=== PATIENT | female | born 1980 | race Caucasian/White ===

== ENCOUNTER → 2020-11-17 07:27 | Outpatient (CLI) | payer OTHER, SELFPAY ==
[2020-11-17] MEDS: COVID-19 VACC, Ad26(JANSSEN)/PF 0.5 ML IM (07:37)
== END ==
PROVIDERS: Family Provider Psychiatry & Neurology Neurology; PCP Psychiatry & Neurology Neurology; Visit Provider Internal Medicine
DX: Z23 Encounter for immunization (principal)
CPT/HCPCS: 0031A; 91303